=== PATIENT | male | born 1960 | race Caucasian/White ===

== ENCOUNTER 2016-11-02 14:18 | Emergency (ER) | payer OTHER ==
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
[2016-11-02 14:34] VITALS: RESP 16; O2SAT 95
[2016-11-02] MEDS ORDERED: HYDROCODONE/APAP 5/325 TAB PO ONE (14:48)
[2016-11-02 15:26] VITALS: BP 118/75; PULSE 76; TEMP 96.8
== END 2016-11-02 15:30 | disposition home or self-care (01) ==
LOC: EDUNIT#
DX: S82.831A Other fracture of upper and lower end of right fibula, initial encounter for closed fracture (principal); V29.40XA Motorcycle driver injured in collision with unspecified motor vehicles in traffic accident, initial encounter; Y92.410 Unspecified street and highway as the place of occurrence of the external cause; Y99.8 Other external cause status; Y93.89 Activity, other specified